=== PATIENT | male | born 1975 | race Caucasian/White ===

== ENCOUNTER → 2017-05-02 | Outpatient (CLI) | payer MEDICAID | LOC: FIMAGING 09:16 | PROVIDERS: ATTEND Physician Assistant | DX: R93.3 Abnormal findings on diagnostic imaging of other parts of digestive tract (principal) ==

== ENCOUNTER 2017-07-26 17:02 | Emergency (ER) | payer MEDICAID ==
[2017-07-26 17:10] VITALS: RESP 16
--- NOTE | 2017-07-26 17:56 | EDPHY ---
H & P Stated Complaint: small lac to distal R mid finger Time Seen by Provider: 07/26/17 17:56 HPI/ROS: HPI: This is a 42-year-old male presents with Chief Complaint: Cut right middle finger Location: Right middle finger Quality: Cut Duration: 2-3 hours prior to arrival Signs and Symptoms: No bleeding, no radiation, no numbness, no weakness, no tingling, no incontinence, no decreased range of motion, + pain Timing: Sudden Severity: 01/09 Context: Patient reports that he was working on his vehicle and accidentally cut his right middle finger on a part of the wheel that is metal. It started to bleed but stopped with direct pressure. Reports constant [id number] pain that is worsened with touching the area. He is right-hand dominant. Tetanus booster up-to-date. Denies any change in skin color/paresthesias/ decreased range of motion. Modifying Factors: Direct pressure Comment: ROS: see HPI Constitutional: No fever, no chills, no weight loss Eyes: No blurred vision Respiratory: No shortness of breath, no cough Cardiovascular: No chest pain Gastrointestinal: No nausea, no vomiting no diarrhea Genitourinary: No dysuria Extremities: No myalgias Neurologic: No weakness, no numbness Skin: No rashes Hematologic: No bruising, no bleeding MEDICAL/SURGICAL/SOCIAL HISTORY: pmh- muliple tbi,Seizure, gerd, high cholesterol - headache x 1.5yrs psh- ortho, hernia psych hx - manic depressive; ADHD, PTSD Social history: Currently in a relationship CONSTITUTIONAL: White male talking on the phone to the police during interview and physical exam, awake and alert, no obvious distress HEENT: Atraumatic and normocephalic, PERRL, EOMI. Tympanic membranes clear. Oropharynx clear, no exudate and moist pink mucosa. Airway patent. No lymphadenopathy. No meningismus. Cardiovascular: Normal S1/S2, regular rate, regular rhythm, without murmur rub or gallop. PULMONARY/CHEST: Symmetrical and nontender. Clear to auscultation bilaterally. Good air movement. No accessory muscle usage. ABDOMEN: Soft, nondistended, nontender, no rebound, no guarding, no peritoneal signs, no masses or organomegaly. No CVAT. EXTREMITIES: 2/2 radial pulses, right middle finger 1.5 cm superficial v- shaped skin avulsion sparing the nail and joint space. DIP/PIP flexion and extension intact. no deformities, no clubbing, no cyanosis or edema. NEUROLOGICAL: no focal neuro deficits. GCS 15. SKIN: Warm and dry, no erythema. no rash. Good capillary refill. Source: Patient Exam Limitations: No limitations - Personal History Current Tetanus Diphtheria and Acellular Pertussis (TDAP): Yes Tetanus Vaccine Date: 2014 - Medical/Surgical History Hx Asthma: No Hx Chronic Respiratory Disease: No Hx Diabetes: No Hx Cardiac Disease: No Hx Renal Disease: No Hx Cirrhosis: No Hx Alcoholism: No Hx HIV/AIDS: No Hx Splenectomy or Spleen Trauma: No Other PMH: pmh- muliple tbi,Seizure, gerd, high cholesterol. - headache x 1.5yrs. psh- ortho, hernia. psych hx - manic depressive; ADHD, PTSD. - Social History Smoking Status: Current every day smoker Constitutional: Initial Vital Signs Temperature (C) 37.2 C 07/26/17 17:08 Heart Rate 76 07/26/17 17:08 Respiratory Rate 16 07/26/17 17:08 Blood Pressure 106/76 07/26/17 17:08 O2 Sat (%) 95 07/26/17 17:08 O2 Delivery Mode Room Air Allergies/Adverse Reactions: lithium Allergy (Verified 07/26/17 17:05) Home Medications: Medication Instructions Recorded Allopurinol [Allopurinol 100 MG 100 mg PO DAILY 07/26/17 (*)] buPROPion [Wellbutrin] 100 mg PO 07/26/17 methYLPHENIDATE HCL [Ritalin 10mg 07/26/17 (*)] Medical Decision Making Procedures: Procedure: Laceration repair. Verbal consent was obtained from the patient. The superficial v-shaped 1.5 cm simple laceration on the right middle distal finger was anesthetized in the usual fashion using a digital block. The wound was irrigated, draped and explored to its base with a gloved finger. There were no deep structures involved. No tendon injury was identified. No foreign bodies were identified. The wound was repaired with #3, 6 0 Prolene in a simple interrupted pattern. Good hemostasis was achieved and patient tolerated procedure well. Clean sterile dressing was placed. The procedure was performed by myself. ED Course/Re-evaluation: Tetanus up-to-date No indication for x-ray at this time as patient politely declined. Skin avulsion laceration repaired using 3 nonabsorbable sutures Clean sterile dressing placed No signs of neurovascular compromise/tenting of skin/compartment syndrome/ extremities and joints examined above and below area of concern and are neurovascularly intact/tendon injury. Differential Diagnosis: Differential diagnosis includes but is limited to skin avulsion, contusion, finger sprain, fracture, nerve injury, tendon injury. Departure - Departure Disposition: Home, Routine, Self-Care Clinical Impression: Laceration of middle finger of right hand without complication Qualifiers: Encounter type: initial encounter Qualified Code(s): S61.212A - Laceration without foreign body of right middle finger without damage to nail, initial encounter Condition: Good Instructions: Finger Laceration (ED) Additional Instructions: Keep the dressing in place for 48 hours. After 48 hours, you may remove the dressing; wash the site daily with mild soap and water; then pat dry. Take ibuprofen 600 mg every 6-8 hours with food as needed for pain and inflammation. Apply ice for 30 minutes at a time; 2-3 times per day for the next 1-2 days. Please return to the emergency room in 7010 days to have your sutures removed. Referrals: ALAMEDA,UNKNOWN [Other] - As per Instructions
[2017-07-26 19:28] VITALS: BP 119/72; PULSE 109; TEMP 99.3; O2SAT 96
== END 2017-07-26 19:27 | disposition home or self-care (01) ==
PROC: 0HQFXZZ Repair Right Hand Skin, External Approach (ICD-10-PCS; principal; 2017-07-26)
DX: S61.212A Laceration without foreign body of right middle finger without damage to nail, initial encounter (principal); F17.200 Nicotine dependence, unspecified, uncomplicated; W26.8XXA Contact with other sharp object(s), not elsewhere classified, initial encounter; Y99.8 Other external cause status; Y93.89 Activity, other specified

== ENCOUNTER 2018-04-02 16:22 | Emergency (ER) | payer MEDICAID ==
--- NOTE | 2018-04-02 16:47 | EDPHY ---
H & P Stated Complaint: dx sinus inf on abx now with abd pain /diarrhea Time Seen by Provider: 04/02/18 16:33 HPI/ROS: CHIEF COMPLAINT: Worsening cold symptoms HISTORY OF PRESENT ILLNESS: The patient is a 43-year-old man who comes to the emergency department with his complaining of worsening cold symptoms. He states that for the last 3 weeks he has had sinus congestion and mild right- sided scapular pain as well as a cough. He was started on azithromycin 1 week ago in yesterday began having diarrhea and cramping. It is been nonbloody. He has not had a fever. No sore throat. The no Headache. No neck stiffness. No rashes. He is here because of the diarrhea and because call does not seem to be getting better. No vomiting. REVIEW OF SYSTEMS: Constitutional: denies: chills, fever, recent illness, recent injury EENTM: denies: blurred vision, double vision, nose congestion Respiratory: denies: cough, shortness of breath Cardiac: denies: chest pain, irregular heart rate, lightheadedness, palpitations Gastrointestinal/Abdominal: See HPI Genitourinary: denies: dysuria, frequency, hematuria, pain Musculoskeletal: denies: joint pain, muscle pain Skin: denies: lesions, rash, jaundice, bruising Neurological: denies: headache, numbness, paresthesia, tingling, dizziness, weakness Hematologic/Lymphatic: denies: blood clots, easy bleeding, easy bruising Immunologic/allergic: denies: HIV/AIDS, transplant EXAM: GENERAL: Well-appearing, well-nourished and in no acute distress. HEAD: Atraumatic, normocephalic. EYES: Pupils equal round and reactive to light, extraocular movements intact, sclera anicteric, conjunctiva are normal. ENT: TMs normal, nares patent, oropharynx clear without exudates. Moist mucous membranes. NECK: Normal range of motion, supple without lymphadenopathy or JVD. LUNGS: Cough, Breath sounds clear to auscultation bilaterally and equal. No wheezes rales or rhonchi. HEART: Regular rate and rhythm without murmurs, rubs or gallops. ABDOMEN: Soft, nontender, normoactive bowel sounds. No guarding, no rebound. No masses appreciated. BACK: No CVA tenderness, no spinal tenderness, step-offs or deformities EXTREMITIES: Normal range of motion, no pitting or edema. No clubbing or cyanosis. NEUROLOGICAL: Cranial nerves II through XII grossly intact. Normal speech, normal gait. 5/5 strength, normal movement in all extremities, normal sensation PSYCH: Normal mood, normal affect. SKIN: Warm, dry, normal turgor, no visible rashes or lesions. Source: Patient Exam Limitations: No limitations - Personal History Current Tetanus Diphtheria and Acellular Pertussis (TDAP): Yes Tetanus Vaccine Date: 2014 - Medical/Surgical History Hx Asthma: No Hx Chronic Respiratory Disease: No Hx Diabetes: No Hx Cardiac Disease: No Hx Renal Disease: No Hx Cirrhosis: No Hx Alcoholism: No Hx HIV/AIDS: No Hx Splenectomy or Spleen Trauma: No Other PMH: pmh- muliple tbi,Seizure, gerd, high cholesterol. - headache x 1.5yrs. psh- ortho, hernia. psych hx - manic depressive; ADHD, PTSD. - Family History Significant Family History: No pertinent family hx - Social History Smoking Status: Never smoked Alcohol Use: Sober Constitutional: Initial Vital Signs Temperature (C) 36.8 C 04/02/18 16:26 Heart Rate 73 04/02/18 16:26 Respiratory Rate 16 04/02/18 16:26 Blood Pressure 101/74 04/02/18 16:26 O2 Sat (%) 97 04/02/18 16:26 O2 Delivery Mode Room Air Allergies/Adverse Reactions: lithium Allergy (Verified 04/02/18 16:25) Home Medications: Medication Instructions Recorded Azithromycin 04/02/18 Nexium 04/02/18 Promethazine HCl/Codeine 5 ml PO Q4-6PRN PRN #90 ml 04/02/18 [Prometh-Codein 6.25-10 mg/5 ml] Medical Decision Making - Diagnostics EKG Interpretation: An EKG obtained and was read and documented in trace view. Please see trace view for full reading and report. Sinus rhythm, no acute ischemic changes Imaging Results: Imaging Impressions Chest X-Ray 04/02/18 16:44 Impression: Findings most consistent with airways disease are noted. Imaging: Discussed imaging studies w/ termite control service representative Radiologist ED Course/Re-evaluation: We discussed the patient's test results which are reassuring. He is doing well and has stable vital signs. Suspect that this is a viral infection possibly also with allergies. The patient and agree. I advised him to discontinue the antibiotics because they seem to be giving him diarrhea and cramping. I will add a cough syrup because he has having trouble sleeping at night with postnasal drip. Is also asking for a note for work that he can return tomorrow. Differential Diagnosis: Partial list of the Differential diagnosis considered include but were not limited to; upper respiratory tract infection, seasonal allergies antibiotic reaction, diarrhea and although unlikely based on the history and physical exam , I also considered appendicitis acute coronary disease, PE, pneumonia, pneumothorax. I discussed these differential diagnoses and the plan with the patient as well as the usual and expected course. The patient understands that the diagnosis is provisional and that in medicine we are not always correct and that further workup is often warranted. Usual and customary warnings were given. All of the patient's questions were answered. The patient was instructed to return to the emergency department should the symptoms at all worsen or return, otherwise to followup with the physician as we discussed. - Data Points Laboratory Results: Laboratory Results 04/02/18 16:50 04/02/18 16:50 04/02/18 04/02/18 04/02/18 16:57 16:55 16:50 WBC RBC Hgb Hct MCV MCH MCHC RDW Plt Count MPV Neut % (Auto) Lymph % (Auto) Cocke % (Auto) Eos % (Auto) Baso % (Auto) Nucleat RBC Rel Count Absolute Neuts (auto) Absolute Lymphs (auto) Absolute Monos (auto) Absolute Eos (auto) Absolute Basos (auto) Absolute Nucleated RBC Immature Gran % Immature Gran # PT INR APTT D-Dimer VBG Lactic Acid 1.2 mmol/L mmol/L (0.7-2.1) Sodium 137 mEq/L mEq/L (135-145) Potassium 3.9 mEq/L mEq/L (3.3-5.0) Chloride 113 mEq/L H mEq/L (97-110) Carbon Dioxide 18 mEq/l L mEq/l (22-31) Anion Gap 6 mEq/L L mEq/L (8-16) BUN 18 mg/dL mg/dL (7-23) Creatinine 1.0 mg/dL mg/dL (0.7-1.3) Estimated GFR > 60 Glucose 99 mg/dL mg/dL (70-100) Calcium 10.1 mg/dL mg/dL (8.5-10.4) Total Bilirubin 0.8 mg/dL mg/dL (0.1-1.4) Conjugated Bilirubin 0.4 mg/dL mg/dL (0.0-0.5) Unconjugated Bilirubin 0.4 mg/dL mg/dL (0.0-1.1) AST 19 IU/L IU/L (17-59) ALT 43 IU/L IU/L (21-72) Alkaline Phosphatase 80 IU/L IU/L (38-126) POC Troponin I 0.00 ng/mL ng/mL (0.00-0.08) Total Protein 7.5 g/dL g/dL (6.3-8.2) Albumin 4.4 g/dL g/dL (3.5-5.0) 04/02/18 04/02/18 16:50 16:50 WBC 6.77 10^3/uL 10^3/uL (3.80-9.50) RBC 5.48 10^6/uL 10^6/uL (4.40-6.38) Hgb 17.5 g/dL g/dL (13.7-17.5) Hct 49.4 % % (40.0-51.0) MCV 90.1 fL fL (81.5-99.8) MCH 31.9 pg pg (27.9-34.1) MCHC 35.4 g/dL g/dL (32.4-36.7) RDW 12.5 % % (11.5-15.2) Plt Count 216 10^3/uL 10^3/uL (150-400) MPV 8.8 fL fL (8.7-11.7) Neut % (Auto) 67.3 % % (39.3-74.2) Lymph % (Auto) 24.4 % % (15.0-45.0) Cocke % (Auto) 6.9 % % (4.5-13.0) Eos % (Auto) 0.9 % % (0.6-7.6) Baso % (Auto) 0.4 % % (0.3-1.7) Nucleat RBC Rel Count 0.0 % % (0.0-0.2) Absolute Neuts (auto) 4.55 10^3/uL 10^3/uL (1.70-6.50) Absolute Lymphs (auto) 1.65 10^3/uL 10^3/uL (1.00-3.00) Absolute Monos (auto) 0.47 10^3/uL 10^3/uL (0.30-0.80) Absolute Eos (auto) 0.06 10^3/uL 10^3/uL (0.03-0.40) Absolute Basos (auto) 0.03 10^3/uL 10^3/uL (0.02-0.10) Absolute Nucleated RBC 0.00 10^3/uL 10^3/uL (0-0.01) Immature Gran % 0.1 % % (0.0-1.1) Immature Gran # 0.01 10^3/uL 10^3/uL (0.00-0.10) PT 13.4 SEC SEC (12.0-15.0) INR 1.00 (0.83-1.16) APTT 24.3 SEC SEC (23.0-38.0) D-Dimer < 0.27 ug/mLFEU ug/mLFEU (0.00-0.50) VBG Lactic Acid Sodium Potassium Chloride Carbon Dioxide Anion Gap BUN Creatinine Estimated GFR Glucose Calcium Total Bilirubin Conjugated Bilirubin Unconjugated Bilirubin AST ALT Alkaline Phosphatase POC Troponin I Total Protein Albumin Point of Care Test Results: Chemistry 04/02/18 16:57 POC Troponin I 0.00 ng/mL ng/mL (0.00-0.08) Departure - Departure Disposition: Home, Routine, Self-Care Clinical Impression: Upper respiratory tract infection Qualifiers: URI type: unspecified viral URI Qualified Code(s): J06.9 - Acute upper respiratory infection, unspecified Condition: Fair Instructions: Upper Respiratory Infection (ED) Referrals: DR MAHSA SAVAGE [Other] - As per Instructions Stand Alone Forms: Work Excuse Prescriptions: Promethazine HCl/Codeine [Prometh-Codein 6.25-10 mg/5 ml] 5 ml PO Q4-6PRN PRN # 90 ml PRN Reason: Cough, Moderate
[2018-04-02 16:56] LABS: PLATELET COUNT 216 10^3/uL (150-400)
--- NOTE | 2018-04-02 16:56 | CPEKG ---
Heart Rate: 60 RR Interval: 1000 P-R Interval: 168 QRSD Interval: 86 QT Interval: 384 QTC Interval: 384 P Clements: 39 QRS Clements: 66 T Wave Clements: 33 EKG Severity - NORMAL ECG - EKG Impression: SINUS RHYTHM Electronically Signed By: Mikey Red 02-Apr-2018 17:00:31
[2018-04-02 17:09] LABS: PROTIME(PATIENT) 13.4 SEC (12.0-15.0)
[2018-04-02 17:42] VITALS: BP 108/70
== END 2018-04-02 18:01 | disposition home or self-care (01) ==
DX: J06.9 Acute upper respiratory infection, unspecified (principal)
CPT/HCPCS: 84484-PO